=== PATIENT | female | born 1970 | race Hispanic/Latino ===

== ENCOUNTER 2017-12-22 21:04 | Observation (INO) | payer OTHER ==
--- NOTE | 2017-12-22 21:47 | ED PDOC ---
HPI: Back Time Seen by Provider: 12/22/17 21:30 Chief Complaint (Nursing): Back Pain Chief Complaint (Provider): Back Pain History Per: Patient Additional Complaint(s): 47 yo female, PMH of chronic back pain, migraines, asthma, Hypothyroidism and gastritis, presents to ED for evaluation of right sided flank pain, associated with difficulty urinating x 1 day. no fever or chills, mild nausea , no episodes of vomiting. Past Medical History Reviewed: Historical Data, Nursing Documentation, Vital Signs Vital Signs: Last Vital Signs Temp 97.9 F 12/22/17 21:09 Pulse 75 12/22/17 21:09 Resp 18 12/22/17 21:09 BP 184/128 H 12/22/17 21:09 Pulse Ox 98 12/22/17 21:09 - Medical History PMH: Asthma, Back Problems (Herniated disc, Chronic back pain), Gastritis, HTN, Hypothyroidism, Kidney Stones, Migraine - Surgical History Surgical History: Back Surgery - Family History Family History: States: Unknown Family Hx - Living Arrangements Living Arrangements: With Family - Social History Current smoker - smoking cessation education provided: No Alcohol: Social Drugs: Denies - Home Medications Home Medications: Ambulatory Orders Medication Instructions Recorded Acetaminophen with Codeine 1 tab PO PRN PRN 12/23/17 [Tylenol with Codeine #3 Tablet] Celecoxib [Celebrex] 200 mg PO BID 12/23/17 DULoxetine [Cymbalta] 60 mg PO BID 12/23/17 Famotidine [Pepcid] 40 mg PO HS 12/23/17 Levothyroxine Sodium [Levoxyl] 112 mcg PO DAILY 12/23/17 Omeprazole [Omeprazole] 40 mg PO DAILY 12/23/17 Pregabalin [Lyrica] 200 mg PO HS 12/23/17 Topiramate [Topamax] 50 mg PO BID 12/23/17 - Allergies Allergies/Adverse Reactions: Allergies Allergy/AdvReac Type Severity Reaction Status Date / Time Sulfa (Sulfonamide Allergy RASH Verified 12/22/17 21:09 Antibiotics) erythromycin base AdvReac VOMITING Verified 12/22/17 21:09 Review of Systems ROS Statement: Except As Marked, All Systems Reviewed And Found Negative Gastrointestinal: Positive for: Nausea, Abdominal Pain Physical Exam - Reviewed Nursing Documentation Reviewed: Yes Vital Signs Reviewed: Yes - Physical Exam Appears: Positive for: Non-toxic, No Acute Distress, Uncomfortable Head Exam: Positive for: ATRAUMATIC, NORMAL INSPECTION, NORMOCEPHALIC Skin: Positive for: Normal Color, Warm, DRY Eye Exam: Positive for: EOMI, Normal appearance, PERRL ENT: Positive for: Normal ENT Inspection Neck: Positive for: Normal, Painless ROM Cardiovascular/Chest: Positive for: Regular Rate, Rhythm Respiratory: Positive for: CNT, Normal Breath Sounds Gastrointestinal/Abdominal: Positive for: Soft, Tenderness. Negative for: Distended, Guarding Back: Positive for: Normal Inspection, R CVA Tenderness Extremity: Positive for: Normal ROM Neurologic/Psych: Positive for: Alert, Oriented - Laboratory Results Result Diagrams: 12/22/17 22:10 12/22/17 22:10 - ECG O2 Sat by Pulse Oximetry: 98 Medical Decision Making Medical Decision Making: IV access established and treatment initiated with IV Toradol and Zofran Repeat BP: 141/85 labs resulted and reviewed with pt who demonstrated full understanding Pt reports pain continues on re-eval, [address] IMPRESSION: There is a 6 x 4 x 7 mm distal RIGHT ureteral obstructing calculus with moderate RIGHT hydroureteronephrosis and severe perinephric stranding. Case discussed with urology on-call, Dr. Lopez, who advised Pt to be admitted at this time Dr. Chirinos consulted and case discussed. arrangements made for admission. Dr. Lopez on consult Pt to be kept NPO after midnight Disposition - Clinical Impression Clinical Impression: Kidney stone - Patient ED Disposition Is Patient to be Admitted: Yes - Disposition Disposition Time: 04:23 Condition: STABLE Forms: [facility] (Yi)
[2017-12-22 23:49] LABS: BASO # 0.1 K/uL (0.0-0.2); EOS # 0.2 K/uL (0.0-0.7); EOS % 2.2 % (0.0-4.0); HEMOGLOBIN 13.6 g/dL (12.0-16.0); LYMPH # 2.6 K/uL (1.0-4.3); LYMPH % 25.2 % (20.0-40.0); MEAN CORPUSCULAR HEMOGLOBIN 29.1 pg (27.0-31.0); MEAN CORPUSCULAR HGB CONC 33.4 g/dL (33.0-37.0); MEAN PLATELET VOLUME 8.8 fl (7.2-11.7); MONO # 0.9 K/uL (0.0-0.8); MONO % 8.5 % (0.0-10.0); NEUT # 6.6 K/uL (1.8-7.0); NEUT % 63.1 % (50.0-75.0); NRBC % 0.1 % (0.0-0.0); RBC 4.66 Mil/uL (3.80-5.20); RED CELL DISTRIBUTION WIDTH 16.5 % (11.5-14.5); WHITE BLOOD COUNT 10.4 K/uL (4.8-10.8)
[2017-12-22 23:53] LABS: CALCIUM 8.9 mg/dL (8.4-10.2); GFR AFRICAN-AMERICAN > 60; GFR NON-AFRICAN AMERICAN 54
[2017-12-22 23:54] LABS: SQUAMOUS EPITHIAL 4 /hpf (0-5); URINE BILIRUBIN NEGATIVE (NEGATIVE); URINE BLOOD SMALL (NEGATIVE); URINE CLARITY CLOUDY (Clear); URINE COLOR YELLOW (YELLOW); URINE GLUCOSE (UA) NEG (Normal); URINE LEUKOCYTE ESTERASE NEG Leu/uL (Negative); URINE PROTEIN NEGATIVE (NEGATIVE); URINE UROBILINOGEN 0.2-1.0 mg/dL (0.2-1.0)
[2017-12-23 00:02] LABS: ALB/GLOB RATIO 1.3 (1.0-2.1); ALT/SGPT 32 U/L (9-52); AST/SGOT 55 U/L (14-36); BLOOD UREA NITROGEN 20 mg/dl (7-17)
[2017-12-23] MEDS ORDERED: Sodium Chloride 0.9% 1,000 ML IV STA (01:18)
[2017-12-23] MEDS ORDERED: cefTRIAXone (Rocephin) 1 gm Inj ONE (01:28)
--- NOTE | 2017-12-23 07:55 | CARD ---
APPROVED REPORT Date of service: 12/23/2017 EKG Measurement Heart [id number] <Conclusion> Normal sinus rhythm Low voltage QRS Borderline ECG
[2017-12-23] MEDS ORDERED: Sodium Chloride 0.9% 1,000 ML IV SCH (08:00)
[2017-12-23 08:02] LABS: BASO # 0.1 K/uL (0.0-0.2); BASO % 0.9 % (0.0-2.0); EOS # 0.2 K/uL (0.0-0.7); EOS % 2.4 % (0.0-4.0); HEMOGLOBIN 13.8 g/dL (12.0-16.0); LYMPH # 2.5 K/uL (1.0-4.3); LYMPH % 28.7 % (20.0-40.0); MEAN CELL VOLUME 86.1 fl (81.0-99.0); MEAN CORPUSCULAR HEMOGLOBIN 29.3 pg (27.0-31.0); MEAN CORPUSCULAR HGB CONC 34.1 g/dL (33.0-37.0); MEAN PLATELET VOLUME 8.2 fl (7.2-11.7); MONO # 0.8 K/uL (0.0-0.8); MONO % 9.2 % (0.0-10.0); NEUT # 5.2 K/uL (1.8-7.0); NEUT % 58.8 % (50.0-75.0); NRBC % 0.2 % (0.0-0.0); RBC 4.69 Mil/uL (3.80-5.20); RED CELL DISTRIBUTION WIDTH 15.9 % (11.5-14.5); WHITE BLOOD COUNT 8.8 K/uL (4.8-10.8)
[2017-12-23 08:16] LABS: ALB/GLOB RATIO 1.3 (1.0-2.1); ALBUMIN 3.7 g/dL (3.5-5.0); CALCIUM 8.2 mg/dL (8.4-10.2)
--- NOTE | 2017-12-23 08:33 | RAD ---
Date of service: 12/23/2017 PROCEDURE: CHEST RADIOGRAPH, 1 VIEW HISTORY: med screening COMPARISON: None available. FINDINGS: LUNGS: The lungs are well inflated and clear. PLEURA: No pneumothorax or pleural fluid seen. CARDIOVASCULAR: Normal. OSSEOUS STRUCTURES: No significant abnormalities. VISUALIZED UPPER ABDOMEN: Normal. OTHER FINDINGS: None. IMPRESSION: No active pulmonary disease.
[2017-12-23 08:35] LABS: T4 9.59 ug/dl (5.5-11.0)
[2017-12-23 08:48] LABS: T3 0.821 nmol/L (1.49-2.60)
--- NOTE | 2017-12-23 09:34 | CT ---
Date of service: 12/23/2017 PROCEDURE: CT Abdomen and Pelvis without intravenous contrast HISTORY: r renal colic COMPARISON: None. TECHNIQUE: Technique. Contrast dose: Radiation dose: Total exam DLP = mGy-cm. This CT exam was performed using one or more of the following dose reduction techniques: Automated exposure control, adjustment of the mA and/or kV according to patient size, and/or use of iterative reconstruction technique. FINDINGS: LOWER THORAX: Unremarkable. LIVER: Unremarkable. No gross lesion or ductal dilatation. GALLBLADDER AND BILE DUCTS: Unremarkable. PANCREAS: Unremarkable. No gross lesion or ductal dilatation. SPLEEN: Unremarkable. ADRENALS: Unremarkable. No mass. KIDNEYS AND URETERS: 7 mm calculus at the right ureterovesical junction resulting in proximal hydroureter, right hydronephrosis. The right kidney is edematous. Unremarkable left kidney in ureter. VASCULATURE: Unremarkable. No aortic aneurysm. BOWEL: Unremarkable. No obstruction. No gross mural thickening. Postoperative findings related to lap band surgery. APPENDIX: Unremarkable. Normal appendix. PERITONEUM: Unremarkable. No free fluid. No free air. LYMPH NODES: Unremarkable. No enlarged lymph nodes. BLADDER: Unremarkable. REPRODUCTIVE: Prior hysterectomy. BONES: No acute fracture. OTHER FINDINGS: None. IMPRESSION: Obstructive uropathy unilateral right side. 7 mm calculus right ureterovesical junction resulting in moderate right hydroureter, hydronephrosis. Additional benign and/or incidental findings described above. Concordant results (preliminary interpretation) provided by [facility]. Procedure Completed: 00:03. Preliminary ([facility]) Report: Dictated and Authenticated: 00:34. Final Interpretation: 09:34. December 23, 2017.
[2017-12-23] MEDS ORDERED: Propofol 10 mg/ml Inj (20 ML) ONE (10:24)
[2017-12-23] MEDS ORDERED: Midazolam 2 MG/2 ML VIAL ONE (10:24)
[2017-12-23] MEDS ORDERED: Succinylcholine 200 mg/10 ml Inj IV ONE (10:24)
[2017-12-23] MEDS ORDERED: Sodium Chloride 0.9% 1,000 ML IV ONE (10:30)
[2017-12-23] MEDS ORDERED: Dexamethasone 4 mg/1 ml ONE (10:55)
[2017-12-23 13:08] VITALS: RESP 18
[2017-12-23 16:12] VITALS: BP 127/87; PULSE 90; TEMP 97.8; O2SAT 97
--- NOTE | 2017-12-23 19:41 | HP ---
Copied To: Pérez Chirinos MD Attending MD: Pérez Chirinos MD CHIEF COMPLAINT: Right flank pain. HISTORY OF PRESENT ILLNESS: This is a 47-year-old female known case of hypertension, diabetes, hypothyroidism, history of kidney stones in the past, and morbid obesity, who was having right flank pain, so the patient was brought to the emergency room and was admitted for further management. REVIEW OF SYSTEMS: Positive for right flank pain and urinary frequency. Review of systems is otherwise is negative for headache, dizziness, syncope, loss of consciousness, chest pain, shortness of breath, nausea, vomiting, diarrhea, constipation, any new joint or extremity pain. Review of systems of all other organ system is unremarkable. PAST MEDICAL HISTORY: Significant for kidney stone, hypertension, diabetes, hypothyroidism. PAST SURGICAL HISTORY: Remarkable for shoulder surgery, cervical fusion, gastric bypass surgery, and hysterectomy. PERSONAL HISTORY: The patient is currently nonsmoker, nondrinker. No substance abuse. MEDICATIONS: The patient is on multiple medication, which is as per reconciliation sheet, which was reviewed and ordered. ALLERGIES: THE PATIENT IS NOT ALLERGIC TO ANY MEDICATIONS. FAMILY HISTORY: Noncontributory. PHYSICAL EXAMINATION: GENERAL: Well-built, well-nourished, overweight 47-year-old female, in no acute distress. VITAL SIGNS: Temperature afebrile, pulse 88, respiration 18, blood pressure 130/80. HEENT: Pupils reacting to light. No JVD. No thyromegaly. No lymphadenopathy. No nystagmus. Normocephalic, atraumatic skull. HEART: S1 and S2. Normal and regular. No significant murmur, gallop or rub is heard. LUNGS: Shows good bilateral air exchange. No rales or rhonchi. ABDOMEN: Soft, nontender. There is right costovertebral tenderness. No sign of acute abdomen. No guarding, no rigidity, no rebound. Bowel sounds are plus and normal. EXTREMITIES: No edema. No calf swelling. No tenderness. No acute ischemia. 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 DIAGNOSTIC DATA: Available diagnostic data reviewed. CAT scan shows 7 mm stone. Other labs are unremarkable. ADMITTING IMPRESSION: Urinary tract infection, pyelonephritis, nephrolithiasis, morbid obesity, diabetes, hypertension, hypothyroidism. PLAN: As ordered. Case and plan discussed with the patient. Pérez Chirinos MD
--- NOTE | 2017-12-23 21:12 | OP ---
Copied To: Fred Lopez MD Attending MD: Fred Lopez MD PROCEDURE DATE: 12/23/2017 PREOPERATIVE DIAGNOSIS: Acute right renal colic secondary to obstructing ureteral calculus. POSTOPERATIVE DIAGNOSIS: Acute right renal colic secondary to obstructing ureteral calculus. PROCEDURES PERFORMED: Cystoscopy, right ureteroscopy, stone basketing, and J-stent placement. DESCRIPTION OF PROCEDURE: Under general anesthesia, the patient was placed on the operating room table in dorsal lithotomy position. The area of the groin was draped and prepped in a sterile manner. Using a short ureteroscope, I entered into the bladder atraumatically, identified the right ureteral orifice. At this time, I attempted to place a sensor wire into the ureter, and approximately 2 cm in, the wire was obstructed. I then under direct vision went, was able to negotiate the sensor wire around the obstructing stone. Once that was in place fluoroscopically, then I deployed a double-helical basket, engaged the stone, and removed it completely. I did a second pass look in the ureter to the level of renal pelvis. I see no other residual stones. At this time, then a 6-Kyrgyz multi-link double J-stent was passed under fluoroscopic guidance into good position. Once this was done, then the patient was taken from the operating room in good condition. The stone was sent for specimen analysis. No blood loss was noted. Fred Lopez MD
== END 2017-12-23 16:05 | disposition home or self-care (01) ==
LOC: H.ER 21:04 → H.ERHOLD 12-23 05:50
PROVIDERS: ADMIT Internal Medicine; ATTEND Internal Medicine
DX: N20.1 Calculus of ureter (principal); E66.01 Morbid (severe) obesity due to excess calories; Z68.36 Body mass index [BMI] 36.0-36.9, adult; E11.9 Type 2 diabetes mellitus without complications; E03.9 Hypothyroidism, unspecified; I10 Essential (primary) hypertension; G89.29 Other chronic pain; Z87.442 Personal history of urinary calculi; J45.909 Unspecified asthma, uncomplicated; G43.909 Migraine, unspecified, not intractable, without status migrainosus; K29.70 Gastritis, unspecified, without bleeding; Z98.84 Bariatric surgery status; Z90.710 Acquired absence of both cervix and uterus; Z88.3 Allergy status to other anti-infective agents; Z88.2 Allergy status to sulfonamides
CPT/HCPCS: 52332; 52352; 71045; 74176; 80053; 80061; 81003; 82355; 82607; 84436; 84443; 84480; 85025; 85610; 85730; 93005; 96365; 96375; 96376; 99284; C1769; C2617; G0378; J0330; J0696; J1100; J1885; J2001; J2250; J2270; J2405; J2704; J3010; J7030